=== PATIENT | female | born 2005 | race Caucasian/White ===

== ENCOUNTER 2025-05-27 00:33 | Emergency (ER) | payer MEDICAID ==
[~2025-05-27] VITALS: Ht 157.5 cm; Wt 55.0 kg
[2025-05-27 00:52] VITALS: O2SAT 99
[2025-05-27] MEDS ORDERED: CARB15DR63 EACH EAR (02:07)
[2025-05-27 02:40] VITALS: BP 108/74; PULSE 90; RESP 15; TEMP 36.9; O2SAT 96
== END 2025-05-27 02:41 | disposition home or self-care (01) ==
LOC: ER 00:33
DX: H92.03 Otalgia, bilateral (principal)
CPT/HCPCS: 99282